=== PATIENT | male | born 1940 | race Caucasian/White ===

== ENCOUNTER 2020-09-28 14:08 | Inpatient (IN) ==
[2020-09-28] MEDS ORDERED: *HR* HYDROmorphone (PF) 1 MG/ML SYRINGE IVP PRN (14:27)
[2020-09-28 15:38] LABS: Basophils % 0.2 %; Hematocrit 42.9 % (37.5-50.1); Hemoglobin 13.2 g/dL (12.9-16.9); Immature Granulocytes % 0.6 % (0-4); Lymphocytes # 0.4 K/mcL (0.6-4.6); Lymphocytes % 3.4 %; Mean Corpuscular HGB Conc 30.8 g/dL (31.6-35.5); Mean Corpuscular Hemoglobin 30.6 pg (28.0-33.3); Mean Corpuscular Volume 99.3 fL (83.0-100.0); Mean Platelet Volume 9.3 fL (9.4-12.4); Monocytes # 0.2 K/mcL (0.0-1.3); Monocytes % 1.9 %; Neutrophils # 9.8 K/mcL (1.6-8.9); Platelet Count 244 K/mcL (140-400); Red Blood Count 4.32 M/mcL (4.19-5.50); Red Cell Distribution Width 11.8 % (11.5-14.5); Segmented Neutrophils % 93.9 %; White Blood Count 10.5 K/mcL (4.3-11.1)
[2020-09-28 15:48] LABS: INR 1.2; Prothrombin Time 13.5 Seconds (9.4-12.1)
[2020-09-28 15:51] LABS: Activated Partial Thrombo Time 32.2 Seconds (26.0-36.0)
[2020-09-28 15:59] LABS: Alanine Aminotransferase 13 Units/L (7-52); Albumin 3.9 g/dL (3.5-5.7); Albumin/Globulin Ratio 1.4 (1.1-2.2); Alkaline Phosphatase 57 Units/L (34-104); Aspartate Amino Transferase 13 Units/L (13-39); BUN/Creatinine Ratio 32 (6-26); Bilirubin,Direct 0.2 mg/dL (0.0-0.2); Bilirubin,Indirect 0.4 mg/dL (0.0-1.0); Bilirubin,Total 0.6 mg/dL (0.3-1.0); Blood Urea Nitrogen 26 mg/dL (8-23); Calcium 9.4 mg/dL (8.6-10.3); Carbon Dioxide 28 mEq/L (23-29); Chloride 103 mEq/L (98-107); Globulin 2.7 g/dL (2.4-3.5); Glucose 154 mg/dL (70-105); Osmolality,Calculated 296 (280-300); Potassium 4.2 mEq/L (3.5-5.1); Sodium 139 mEq/L (136-145); Total Protein 6.6 g/dL (6.4-8.9); Troponin I < 0.03 ng/mL (< 0.04); eGFR For African Americans > 60 (> 60); eGFR For Non-African Americans > 60 (> 60)
[2020-09-28 16:29] LABS: Bilirubin,Urine Negative (Negative); Blood,Urine Moderate (Negative); Clarity,Urine Clear (Clear); Color,Urine Yellow (Yellow); Glucose,Urine (UA) Normal (Normal); Ketones,Urine 20 mg/dL (Negative); Leukocyte Esterase,Urine Negative (Negative); Mucus,Urine Few per lpf (None-Few); Nitrite,Urine Negative (Negative); Protein,Urine 30 mg/dL (Neg-Trace); RBC,Urine 50-100 per hpf (0-3); Specific Gravity,Urine 1.024 (1.010-1.025); Squamous Epithelial Cell,Urine Few per hpf (None-Few); Urobilinogen,Urine Normal (Normal); WBC,Urine 0-3 per hpf (0-3)
[2020-09-28] MEDS ORDERED: Ondansetron ODT 4 MG TAB.RAPDIS SL PRN (16:57)
[2020-09-28] MEDS ORDERED: Melatonin 3 MG TABLET PO PRN (16:57)
[2020-09-28] MEDS ORDERED: Naloxone 0.4 MG/ML INJ IVP PRN (16:57)
[2020-09-28] MEDS ORDERED: *HR* OxyCODONE Immed Rel 5 MG TABLET PO PRN (17:03)
[2020-09-28] MEDS ORDERED: *HR* HYDROmorphone 2 MG TABLET PO PRN (17:03)
[2020-09-28] MEDS ORDERED: Nicotine 14 MG PATCH.TD24 TD PRN (17:51)
[2020-09-28] MEDS ORDERED: Albuterol 2.5 MG/3 ML NEBULIZER IH PRN (17:51)
[2020-09-28] MEDS: Ipratropium/Albuterol Neb 3 ML IH SCH ×2 (18:24→22:23)
[2020-09-29] MEDS: Hydrocortisone Sodium Succ 100 MG/2 ML VIAL IVP SCH ×3 (00:30→16:02)
[2020-09-29] MEDS ORDERED: ceFAZolin 2,000 MG in 0.9 % Sodium Chloride 100 ML IVPB ONE (04:36)
[2020-09-29] MEDS: Ipratropium/Albuterol Neb 3 ML IH SCH ×4 (04:50→23:17)
[2020-09-29 07:08] LABS: Hematocrit 39.4 % (37.5-50.1); Hemoglobin 12.4 g/dL (12.9-16.9); Mean Corpuscular HGB Conc 31.5 g/dL (31.6-35.5); Mean Corpuscular Hemoglobin 30.2 pg (28.0-33.3); Mean Corpuscular Volume 96.1 fL (83.0-100.0); Mean Platelet Volume 9.4 fL (9.4-12.4); Platelet Count 205 K/mcL (140-400); Red Cell Distribution Width 11.7 % (11.5-14.5); White Blood Count 11.7 K/mcL (4.3-11.1)
[2020-09-29] MEDS ORDERED: *HR* FentaNYL (PF) 100 MCG/2 ML VIAL ONE (07:25)
[2020-09-29] MEDS ORDERED: Morphine Sulfate/PF 5mg/10mL Vial ONE (07:29)
[2020-09-29] MEDS ORDERED: Albuterol 2.5 MG/3 ML NEBULIZER IH PRN (07:30)
[2020-09-29] MEDS ORDERED: Ondansetron 4 MG/2 ML VIAL IVP PRN (07:30)
[2020-09-29] MEDS ORDERED: Ipratropium Neb 0.5 MG NEBULIZER IH PRN (07:30)
[2020-09-29] MEDS ORDERED: *HR* FentaNYL (PF) 100 MCG/2 ML VIAL IVP PRN (07:30)
[2020-09-29 07:53] LABS: BUN/Creatinine Ratio 34 (6-26); Blood Urea Nitrogen 27 mg/dL (8-23); Calcium 9.3 mg/dL (8.6-10.3); Carbon Dioxide 28 mEq/L (23-29); Chloride 104 mEq/L (98-107); Glucose 141 mg/dL (70-105); Osmolality,Calculated 297 (280-300); Potassium 4.8 mEq/L (3.5-5.1); Sodium 140 mEq/L (136-145); eGFR For African Americans > 60 (> 60); eGFR For Non-African Americans > 60 (> 60)
[2020-09-29] MEDS ORDERED: Lidocaine -MPF 2% 2 ML VIAL ONE (07:56)
[2020-09-29] MEDS ORDERED: Ondansetron 4 MG/2 ML VIAL ONE (08:14)
[2020-09-29] MEDS ORDERED: Tranexamic Acid 1,000 MG/10 ML VIAL ONE (08:16)
[2020-09-29] MEDS ORDERED: Acetaminophen 325 MG TABLET PO PRN (14:52)
[2020-09-29] MEDS: CeFAZolin 2 GM/120 ML BAG IVPB SCH (16:02)
[2020-09-29] MEDS ORDERED: levoFLOXacin 500 MG TABLET PO SCH (18:15)
[2020-09-29] MEDS: levoFLOXacin 500 MG TABLET PO SCH (22:35)
[2020-09-30] MEDS: Hydrocortisone Sodium Succ 100 MG/2 ML VIAL IVP SCH ×4 (00:31→19:52)
[2020-09-30] MEDS: CeFAZolin 2 GM/120 ML BAG IVPB SCH (00:32)
[2020-09-30] MEDS: Ipratropium/Albuterol Neb 3 ML IH SCH ×4 (03:08→23:01)
[2020-09-30 06:10] LABS: Hematocrit 30.1 % (37.5-50.1); Mean Corpuscular HGB Conc 31.9 g/dL (31.6-35.5); Mean Corpuscular Hemoglobin 30.5 pg (28.0-33.3); Mean Corpuscular Volume 95.6 fL (83.0-100.0); Mean Platelet Volume 9.4 fL (9.4-12.4); Platelet Count 181 K/mcL (140-400); Red Blood Count 3.15 M/mcL (4.19-5.50); Red Cell Distribution Width 11.7 % (11.5-14.5); White Blood Count 16.6 K/mcL (4.3-11.1)
[2020-09-30 06:11] LABS: Hemoglobin 9.6 g/dL (12.9-16.9)
[2020-09-30 06:23] LABS: BUN/Creatinine Ratio 31 (6-26); Blood Urea Nitrogen 23 mg/dL (8-23); Calcium 8.9 mg/dL (8.6-10.3); Carbon Dioxide 30 mEq/L (23-29); Chloride 102 mEq/L (98-107); Glucose 150 mg/dL (70-105); Osmolality,Calculated 291 (280-300); Potassium 4.5 mEq/L (3.5-5.1); Sodium 137 mEq/L (136-145); eGFR For African Americans > 60 (> 60); eGFR For Non-African Americans > 60 (> 60)
[2020-09-30] MEDS: Aspirin Enteric Coated 81 MG Tablet PO SCH (08:35)
[2020-09-30] MEDS ORDERED: Isovue-370 500 ML BOTTLE IVP ONE (10:09)
[2020-09-30] MEDS: FLUTICASONE FUROATE IH SCH (12:01)
[2020-09-30] MEDS: (Anoro Ellipta 62.5-2) IH SCH (12:01)
[2020-09-30] MEDS: *HR* Acetylcysteine 20% 600 MG/3 ML ORAL SYRINGE PO SCH (19:37)
[2020-09-30 20:41] LABS: Hemoglobin 10.1 g/dL (12.9-16.9)
[2020-09-30] MEDS: levoFLOXacin 500 MG TABLET PO SCH (23:19)
[2020-10-01 00:48] LABS: Hematocrit 30.7 % (37.5-50.1); Hemoglobin 9.8 g/dL (12.9-16.9); Mean Corpuscular HGB Conc 31.9 g/dL (31.6-35.5); Mean Corpuscular Hemoglobin 30.2 pg (28.0-33.3); Mean Corpuscular Volume 94.8 fL (83.0-100.0); Mean Platelet Volume 9.4 fL (9.4-12.4); Platelet Count 185 K/mcL (140-400); Red Blood Count 3.24 M/mcL (4.19-5.50); Red Cell Distribution Width 11.9 % (11.5-14.5); White Blood Count 16.5 K/mcL (4.3-11.1)
[2020-10-01 00:57] LABS: BUN/Creatinine Ratio 32 (6-26); Blood Urea Nitrogen 23 mg/dL (8-23); Calcium 9.1 mg/dL (8.6-10.3); Carbon Dioxide 30 mEq/L (23-29); Chloride 104 mEq/L (98-107); Glucose 136 mg/dL (70-105); Osmolality,Calculated 298 (280-300); Potassium 4.3 mEq/L (3.5-5.1); Sodium 141 mEq/L (136-145); eGFR For African Americans > 60 (> 60); eGFR For Non-African Americans > 60 (> 60)
[2020-10-01] MEDS ORDERED: tiZANidine 4 MG TABLET PO ONE ×2 (03:41→06:44)
[2020-10-01] MEDS: Ipratropium/Albuterol Neb 3 ML IH SCH ×4 (04:10→22:36)
[2020-10-01] MEDS: Hydrocortisone Sodium Succ 100 MG/2 ML VIAL IVP SCH (04:52)
[2020-10-01] MEDS: Aspirin Enteric Coated 81 MG Tablet PO SCH (08:01)
[2020-10-01] MEDS: levoFLOXacin 500 MG TABLET PO SCH (08:01)
[2020-10-01] MEDS: FLUTICASONE FUROATE IH SCH (08:06)
[2020-10-01] MEDS: (Anoro Ellipta 62.5-2) IH SCH (08:06)
[2020-10-01] MEDS: *HR* Acetylcysteine 20% 600 MG/3 ML ORAL SYRINGE PO SCH (08:12)
[2020-10-01] MEDS: tiZANidine 4 MG TABLET PO PRN (18:46)
[2020-10-02] MEDS: Ipratropium/Albuterol Neb 3 ML IH SCH (04:40)
[2020-10-02 05:13] LABS: Hematocrit 31.8 % (37.5-50.1); Hemoglobin 10.3 g/dL (12.9-16.9); Mean Corpuscular HGB Conc 32.4 g/dL (31.6-35.5); Mean Corpuscular Hemoglobin 30.9 pg (28.0-33.3); Mean Corpuscular Volume 95.5 fL (83.0-100.0); Mean Platelet Volume 9.4 fL (9.4-12.4); Platelet Count 210 K/mcL (140-400); Red Blood Count 3.33 M/mcL (4.19-5.50); Red Cell Distribution Width 11.9 % (11.5-14.5); White Blood Count 17.8 K/mcL (4.3-11.1)
[2020-10-02 05:27] LABS: BUN/Creatinine Ratio 34 (6-26); Blood Urea Nitrogen 25 mg/dL (8-23); Calcium 9.1 mg/dL (8.6-10.3); Carbon Dioxide 33 mEq/L (23-29); Chloride 100 mEq/L (98-107); Glucose 125 mg/dL (70-105); Magnesium 1.9 mg/dL (1.6-2.6); Osmolality,Calculated 294 (280-300); Potassium 4.5 mEq/L (3.5-5.1); Sodium 139 mEq/L (136-145); eGFR For African Americans > 60 (> 60); eGFR For Non-African Americans > 60 (> 60)
[2020-10-02] MEDS: *HR* Enoxaparin 40 MG/0.4 ML SYRINGE SQ SCH (06:16)
[2020-10-02] MEDS: Aspirin Enteric Coated 81 MG Tablet PO SCH (08:06)
[2020-10-02] MEDS: *HR* Acetylcysteine 20% 600 MG/3 ML ORAL SYRINGE PO SCH (08:06)
[2020-10-02] MEDS: levoFLOXacin 500 MG TABLET PO SCH (08:06)
[2020-10-02] MEDS: (Anoro Ellipta 62.5-2) IH SCH (08:06)
[2020-10-02] MEDS: FLUTICASONE FUROATE IH SCH (08:06)
[2020-10-02] MEDS: tiZANidine 4 MG TABLET PO PRN (08:10)
[2020-10-02] MEDS: Levalbuterol Neb 1.25 MG/3 ML IH SCH ×3 (11:06→22:45)
[2020-10-02] MEDS: Ipratropium Neb 0.5 MG NEBULIZER IH SCH ×3 (11:06→22:45)
[2020-10-03 02:35] LABS: Hematocrit 28.8 % (37.5-50.1); Hemoglobin 8.9 g/dL (12.9-16.9); Mean Corpuscular HGB Conc 30.9 g/dL (31.6-35.5); Mean Corpuscular Hemoglobin 30.1 pg (28.0-33.3); Mean Corpuscular Volume 97.3 fL (83.0-100.0); Platelet Count 211 K/mcL (140-400); Red Blood Count 2.96 M/mcL (4.19-5.50); Red Cell Distribution Width 11.9 % (11.5-14.5); White Blood Count 12.6 K/mcL (4.3-11.1)
[2020-10-03 03:02] LABS: BUN/Creatinine Ratio 37 (6-26); Blood Urea Nitrogen 26 mg/dL (8-23); Calcium 8.7 mg/dL (8.6-10.3); Carbon Dioxide 32 mEq/L (23-29); Chloride 99 mEq/L (98-107); Glucose 125 mg/dL (70-105); Osmolality,Calculated 292 (280-300); Potassium 4.1 mEq/L (3.5-5.1); Sodium 138 mEq/L (136-145); eGFR For African Americans > 60 (> 60); eGFR For Non-African Americans > 60 (> 60)
[2020-10-03] MEDS: Ipratropium Neb 0.5 MG NEBULIZER IH SCH ×4 (03:59→22:45)
[2020-10-03] MEDS: Levalbuterol Neb 1.25 MG/3 ML IH SCH ×4 (03:59→22:44)
[2020-10-03] MEDS: *HR* Enoxaparin 40 MG/0.4 ML SYRINGE SQ SCH (07:53)
[2020-10-03] MEDS: (Anoro Ellipta 62.5-2) IH SCH (07:55)
[2020-10-03] MEDS: FLUTICASONE FUROATE IH SCH (07:55)
[2020-10-03] MEDS: Aspirin Enteric Coated 81 MG Tablet PO SCH (08:00)
[2020-10-03] MEDS: levoFLOXacin 500 MG TABLET PO SCH (08:02)
[2020-10-03] MEDS: 0.9 % Sodium Chloride 1,000 ML IVC SCH (17:46)
[2020-10-04] MEDS: Ipratropium Neb 0.5 MG NEBULIZER IH SCH ×4 (03:52→22:36)
[2020-10-04] MEDS: Levalbuterol Neb 1.25 MG/3 ML IH SCH ×4 (03:52→22:36)
[2020-10-04] MEDS: 0.9 % Sodium Chloride 1,000 ML IVC SCH ×3 (05:19→19:50)
[2020-10-04] MEDS: *HR* Enoxaparin 40 MG/0.4 ML SYRINGE SQ SCH (05:19)
[2020-10-04] MEDS: Aspirin Enteric Coated 81 MG Tablet PO SCH (09:06)
[2020-10-04] MEDS: FLUTICASONE FUROATE IH SCH (09:11)
[2020-10-04] MEDS: (Anoro Ellipta 62.5-2) IH SCH (09:11)
[2020-10-04] MEDS: levoFLOXacin 500 MG TABLET PO SCH (09:17)
[2020-10-04 10:29] LABS: Hematocrit 26.8 % (37.5-50.1); Hemoglobin 8.3 g/dL (12.9-16.9)
[2020-10-04] MEDS ORDERED: Acetaminophen IV 500 MG/50 ML BAG IVPB ONE (23:02)
[2020-10-05] MEDS: Ipratropium Neb 0.5 MG NEBULIZER IH SCH ×3 (03:37→15:41)
[2020-10-05] MEDS: Levalbuterol Neb 1.25 MG/3 ML IH SCH ×3 (03:37→15:41)
[2020-10-05] MEDS: *HR* Enoxaparin 40 MG/0.4 ML SYRINGE SQ SCH (05:38)
[2020-10-05] MEDS: 0.9 % Sodium Chloride 1,000 ML IVC SCH (05:38)
[2020-10-05] MEDS: Aspirin Enteric Coated 81 MG Tablet PO SCH (09:16)
[2020-10-05] MEDS: (Anoro Ellipta 62.5-2) IH SCH (09:18)
[2020-10-05] MEDS: FLUTICASONE FUROATE IH SCH (09:18)
[2020-10-05 12:10] VITALS: BP 107/59; PULSE 101; TEMP 98.5
[2020-10-05 15:32] LABS: Influenza A PCR Negative (Negative); Influenza B PCR Negative (Negative); Resp. Syncytial Virus PCR Negative (Negative)
[2020-10-05 15:48] VITALS: O2SAT 90
[2020-10-05 16:05] LABS: SARS-CoV-2 by PCR (In House) Negative (Negative)
== END 2020-10-05 17:53 | disposition other institution (70) | DRG 480 ==
LOC: EMEROOARM 14:08 → 3NENU 14:08 → SUATTDRO 16:13 → 3NENU 17:06
PROVIDERS: ADMIT Pharmacist; ATTEND Internal Medicine

== ENCOUNTER 2020-10-17 16:08 | Observation (INO) ==
[2020-10-17] MEDS ORDERED: Naloxone 0.4 MG/ML INJ IVP PRN (17:16)
[2020-10-17 18:06] LABS: Basophils % 0.1 %; Hematocrit 36.7 % (37.5-50.1); Lymphocytes # 0.5 K/mcL (0.6-4.6); Lymphocytes % 3.7 %; Mean Corpuscular Hemoglobin 30.1 pg (28.0-33.3); Mean Corpuscular Volume 100.3 fL (83.0-100.0); Mean Platelet Volume 8.7 fL (9.4-12.4); Monocytes # 0.9 K/mcL (0.0-1.3); Monocytes % 6.2 %; Neutrophils # 12.3 K/mcL (1.6-8.9); Platelet Count 500 K/mcL (140-400); Red Blood Count 3.66 M/mcL (4.19-5.50); Red Cell Distribution Width 12.8 % (11.5-14.5); White Blood Count 13.8 K/mcL (4.3-11.1)
[2020-10-17 18:14] LABS: INR 1.1; Prothrombin Time 12.3 Seconds (9.4-12.1)
[2020-10-17 18:27] LABS: BUN/Creatinine Ratio 33 (6-26); Blood Urea Nitrogen 24 mg/dL (8-23); Calcium 9.1 mg/dL (8.6-10.3); Carbon Dioxide 38 mEq/L (23-29); Chloride 101 mEq/L (98-107); Glucose 143 mg/dL (70-105); Osmolality,Calculated 301 (280-300); Potassium 4.7 mEq/L (3.5-5.1); Sodium 142 mEq/L (136-145); eGFR For African Americans > 60 (> 60); eGFR For Non-African Americans > 60 (> 60)
[2020-10-17] MEDS: Budesonide/Formoterol 160/4.5 1 PUFF INH IH SCH (19:57)
[2020-10-17] MEDS: Ipratropium/Albuterol Neb 3 ML IH SCH (19:57)
[2020-10-18] MEDS: Ipratropium/Albuterol Neb 3 ML IH SCH ×6 (00:02→20:38)
[2020-10-18 06:15] LABS: Basophils % 0.1 %; Eosinophils # 0.1 K/mcL (0.0-0.6); Eosinophils % 0.8 %; Hematocrit 35.3 % (37.5-50.1); Hemoglobin 10.5 g/dL (12.9-16.9); Immature Granulocytes % 0.9 % (0-4); Lymphocytes # 1.6 K/mcL (0.6-4.6); Lymphocytes % 8.8 %; Mean Corpuscular HGB Conc 29.7 g/dL (31.6-35.5); Mean Corpuscular Hemoglobin 29.7 pg (28.0-33.3); Monocytes # 1.8 K/mcL (0.0-1.3); Monocytes % 9.9 %; Neutrophils # 14.7 K/mcL (1.6-8.9); Platelet Count 478 K/mcL (140-400); Red Blood Count 3.53 M/mcL (4.19-5.50); Segmented Neutrophils % 79.5 %; White Blood Count 18.5 K/mcL (4.3-11.1)
[2020-10-18 06:35] LABS: BUN/Creatinine Ratio 32 (6-26); Blood Urea Nitrogen 22 mg/dL (8-23); Calcium 8.9 mg/dL (8.6-10.3); Carbon Dioxide 38 mEq/L (23-29); Chloride 103 mEq/L (98-107); Glucose 88 mg/dL (70-105); Magnesium 2.2 mg/dL (1.6-2.6); Osmolality,Calculated 299 (280-300); Phosphorous 2.2 mg/dL (2.7-4.5); Potassium 4.3 mEq/L (3.5-5.1); Sodium 143 mEq/L (136-145); eGFR For African Americans > 60 (> 60); eGFR For Non-African Americans > 60 (> 60)
[2020-10-18] MEDS: Budesonide/Formoterol 160/4.5 1 PUFF INH IH SCH ×2 (07:37→20:38)
[2020-10-18] MEDS ORDERED: Ondansetron 4 MG/2 ML VIAL IVP PRN (08:41)
[2020-10-18] MEDS ORDERED: *HR* HYDROmorphone PF 0.5 MG/0.5 ML SYRINGE IVP PRN (08:41)
[2020-10-18] MEDS ORDERED: *HR* OxyCODONE Immed Rel 5 MG TABLET PO PRN (08:41)
[2020-10-18] MEDS ORDERED: Promethazine 6.25 MG in Water for inj. (sterile) 20 ML IVPB PRN (08:41)
[2020-10-18] MEDS ORDERED: *HR* Propofol 200 MG/20 ML VIAL IVP ONE (08:53)
[2020-10-18] MEDS ORDERED: *HR* Succinylcholine 200 MG/10 ML VIAL IVP ONE (08:53)
[2020-10-18] MEDS ORDERED: Lidocaine -MPF 2% 5 ML VIAL SQ ONE (08:53)
[2020-10-18] MEDS ORDERED: Ondansetron 4 MG/2 ML VIAL IVP ONE (08:53)
[2020-10-18] MEDS ORDERED: *HR* FentaNYL (PF) 100 MCG/2 ML VIAL ONE (08:58)
[2020-10-18] MEDS ORDERED: Ringers Solution, Lactated 1,000 ML IVC SCH (09:45)
[2020-10-18 12:51] LABS: Source of Body Fluid LEFT LOWER LOBE LUNG
[2020-10-18] MEDS: predniSONE 20 MG TABLET PO SCH ×2 (14:20→16:16)
[2020-10-18] MEDS: Aspirin Enteric Coated 81 MG Tablet PO SCH (14:39)
[2020-10-18] MEDS: *HR* Acetylcysteine 20% 600 MG/3 ML ORAL SYRINGE PO SCH (14:39)
[2020-10-18 15:49] LABS: Source of Body Fluid RIGHT LOWER LOBE LUN
[2020-10-18 15:56] LABS: Appearance of Body Fluid Slightly Hazy (Clear); Volume of Body Fluid 23 mL
[2020-10-18] MEDS ORDERED: levoFLOXacin 750 MG TABLET PO SCH ×2 (17:30)
[2020-10-18 17:33] LABS: Appearance of Body Fluid Hazy (Clear); Volume of Body Fluid 12 mL
[2020-10-19] MEDS: Ipratropium/Albuterol Neb 3 ML IH SCH ×7 (00:10→23:38)
[2020-10-19 06:54] LABS: Basophils % 0.1 %; Hematocrit 30.6 % (37.5-50.1); Hemoglobin 9.3 g/dL (12.9-16.9); Lymphocytes # 0.6 K/mcL (0.6-4.6); Lymphocytes % 3.9 %; Mean Corpuscular HGB Conc 30.4 g/dL (31.6-35.5); Mean Corpuscular Hemoglobin 30.2 pg (28.0-33.3); Mean Corpuscular Volume 99.4 fL (83.0-100.0); Mean Platelet Volume 9.1 fL (9.4-12.4); Monocytes # 1.2 K/mcL (0.0-1.3); Monocytes % 7.8 %; Neutrophils # 13.6 K/mcL (1.6-8.9); Platelet Count 407 K/mcL (140-400); Red Blood Count 3.08 M/mcL (4.19-5.50); Segmented Neutrophils % 87.2 %; White Blood Count 15.6 K/mcL (4.3-11.1)
[2020-10-19 07:14] LABS: BUN/Creatinine Ratio 29 (6-26); Blood Urea Nitrogen 22 mg/dL (8-23); Calcium 8.7 mg/dL (8.6-10.3); Carbon Dioxide 34 mEq/L (23-29); Chloride 104 mEq/L (98-107); Glucose 100 mg/dL (70-105); Magnesium 2.1 mg/dL (1.6-2.6); Osmolality,Calculated 299 (280-300); Phosphorous 3.2 mg/dL (2.7-4.5); Potassium 4.9 mEq/L (3.5-5.1); Sodium 143 mEq/L (136-145); eGFR For African Americans > 60 (> 60); eGFR For Non-African Americans > 60 (> 60)
[2020-10-19] MEDS: Budesonide/Formoterol 160/4.5 1 PUFF INH IH SCH ×2 (07:29→19:29)
[2020-10-19] MEDS: *HR* Acetylcysteine 20% 600 MG/3 ML ORAL SYRINGE PO SCH (09:38)
[2020-10-19] MEDS: Aspirin Enteric Coated 81 MG Tablet PO SCH (09:38)
[2020-10-19] MEDS: predniSONE 20 MG TABLET PO SCH ×2 (09:39→16:27)
[2020-10-20 03:23] LABS: Basophils % 0.1 %; Hematocrit 29.8 % (37.5-50.1); Hemoglobin 9.2 g/dL (12.9-16.9); Immature Granulocytes % 0.8 % (0-4); Lymphocytes # 0.4 K/mcL (0.6-4.6); Lymphocytes % 2.5 %; Mean Corpuscular HGB Conc 30.9 g/dL (31.6-35.5); Mean Corpuscular Hemoglobin 30.1 pg (28.0-33.3); Mean Corpuscular Volume 97.4 fL (83.0-100.0); Monocytes # 1.2 K/mcL (0.0-1.3); Monocytes % 6.6 %; Neutrophils # 15.6 K/mcL (1.6-8.9); Platelet Count 353 K/mcL (140-400); Red Blood Count 3.06 M/mcL (4.19-5.50); Red Cell Distribution Width 13.2 % (11.5-14.5); White Blood Count 17.3 K/mcL (4.3-11.1)
[2020-10-20] MEDS: Ipratropium/Albuterol Neb 3 ML IH SCH ×3 (03:23→11:22)
[2020-10-20 03:37] LABS: BUN/Creatinine Ratio 34 (6-26); Blood Urea Nitrogen 25 mg/dL (8-23); Calcium 8.4 mg/dL (8.6-10.3); Carbon Dioxide 33 mEq/L (23-29); Chloride 104 mEq/L (98-107); Glucose 118 mg/dL (70-105); Magnesium 2.1 mg/dL (1.6-2.6); Osmolality,Calculated 295 (280-300); Phosphorous 2.8 mg/dL (2.7-4.5); Potassium 4.2 mEq/L (3.5-5.1); Sodium 140 mEq/L (136-145); eGFR For African Americans > 60 (> 60); eGFR For Non-African Americans > 60 (> 60)
[2020-10-20 07:10] VITALS: TEMP 97.6
[2020-10-20] MEDS: Budesonide/Formoterol 160/4.5 1 PUFF INH IH SCH (07:29)
[2020-10-20] MEDS: predniSONE 20 MG TABLET PO SCH (07:58)
[2020-10-20] MEDS: Aspirin Enteric Coated 81 MG Tablet PO SCH (07:58)
[2020-10-20] MEDS: *HR* Acetylcysteine 20% 600 MG/3 ML ORAL SYRINGE PO SCH (07:59)
[2020-10-20 10:32] VITALS: BP 93/58; PULSE 97
[2020-10-20 12:22] VITALS: O2SAT 96
[2020-10-20] MEDS ORDERED: levoFLOXacin 750 MG TABLET PO SCH (16:00)
== END 2020-10-20 14:30 | disposition other institution (70) ==
LOC: 3ANU → SUATTDRO 16:42
PROVIDERS: ADMIT Internal Medicine; ATTEND Internal Medicine

== ENCOUNTER 2020-11-04 13:56 | Inpatient (IN) ==
[2020-11-04] MEDS ORDERED: Melatonin 3 MG TABLET PO PRN (22:23)
[2020-11-04] MEDS ORDERED: Acetaminophen 325 MG TABLET PO PRN (22:23)
[2020-11-04] MEDS ORDERED: Ondansetron 4 MG/2 ML VIAL IVP PRN (22:23)
[2020-11-04] MEDS ORDERED: Naloxone 0.4 MG/ML INJ IVP PRN (22:23)
[2020-11-05 00:57] LABS: Basophils % 0.1 %; Eosinophils % 0.2 %; Hematocrit 27.3 % (37.5-50.1); Hemoglobin 8.5 g/dL (12.9-16.9); Immature Granulocytes % 1.3 % (0-4); Lymphocytes # 0.5 K/mcL (0.6-4.6); Lymphocytes % 4.2 %; Mean Corpuscular HGB Conc 31.1 g/dL (31.6-35.5); Mean Corpuscular Hemoglobin 29.4 pg (28.0-33.3); Mean Corpuscular Volume 94.5 fL (83.0-100.0); Mean Platelet Volume 9.1 fL (9.4-12.4); Monocytes % 8.1 %; Platelet Count 372 K/mcL (140-400); Red Blood Count 2.89 M/mcL (4.19-5.50); Red Cell Distribution Width 13.4 % (11.5-14.5); Segmented Neutrophils % 86.1 %; White Blood Count 12.7 K/mcL (4.3-11.1)
[2020-11-05 01:19] LABS: Alanine Aminotransferase 15 Units/L (7-52); Albumin 2.5 g/dL (3.5-5.7); Albumin/Globulin Ratio 0.9 (1.1-2.2); Alkaline Phosphatase 56 Units/L (34-104); Aspartate Amino Transferase 9 Units/L (13-39); BUN/Creatinine Ratio 46 (6-26); Bilirubin,Total 0.3 mg/dL (0.3-1.0); Blood Urea Nitrogen 31 mg/dL (8-23); Calcium 8.8 mg/dL (8.6-10.3); Carbon Dioxide 29 mEq/L (23-29); Chloride 106 mEq/L (98-107); Globulin 2.8 g/dL (2.4-3.5); Glucose 104 mg/dL (70-105); Magnesium 1.9 mg/dL (1.6-2.6); Osmolality,Calculated 297 (280-300); Phosphorous 3.5 mg/dL (2.7-4.5); Potassium 4.6 mEq/L (3.5-5.1); Sodium 140 mEq/L (136-145); Total Protein 5.3 g/dL (6.4-8.9); Troponin I 0.03 ng/mL (< 0.04); eGFR For African Americans > 60 (> 60); eGFR For Non-African Americans > 60 (> 60)
[2020-11-05] MEDS: *HR* Enoxaparin 40 MG/0.4 ML SYRINGE SQ SCH (05:22)
[2020-11-05] MEDS ORDERED: Isovue-370 500 ML BOTTLE IVP ONE (11:06)
[2020-11-05] MEDS ORDERED: Ipratropium/Albuterol Neb 3 ML IH PRN (11:18)
[2020-11-05] MEDS: predniSONE 20 MG TABLET PO SCH (11:40)
[2020-11-05] MEDS: Piperacillin/Tazobactam 3.375 GM in 0.9 % Sodium Chloride Mini Bag 100 ML IVPB SCH (18:25)
[2020-11-05] MEDS: *HR* Acetylcysteine 20% 600 MG/3 ML ORAL SYRINGE PO SCH (20:27)
[2020-11-05] MEDS: Budesonide/Formoterol 160/4.5 1 PUFF INH IH SCH (22:51)
[2020-11-06] MEDS: Piperacillin/Tazobactam 3.375 GM in 0.9 % Sodium Chloride Mini Bag 100 ML IVPB SCH ×3 (02:13→17:03)
[2020-11-06 03:32] LABS: Basophils % 0.1 %; Eosinophils % 0.1 %; Hematocrit 28.1 % (37.5-50.1); Hemoglobin 8.5 g/dL (12.9-16.9); Lymphocytes # 0.4 K/mcL (0.6-4.6); Lymphocytes % 2.9 %; Mean Corpuscular HGB Conc 30.2 g/dL (31.6-35.5); Mean Corpuscular Hemoglobin 28.9 pg (28.0-33.3); Mean Corpuscular Volume 95.6 fL (83.0-100.0); Mean Platelet Volume 9.4 fL (9.4-12.4); Monocytes # 0.9 K/mcL (0.0-1.3); Neutrophils # 12.7 K/mcL (1.6-8.9); Platelet Count 414 K/mcL (140-400); Red Blood Count 2.94 M/mcL (4.19-5.50); Red Cell Distribution Width 13.4 % (11.5-14.5); Segmented Neutrophils % 89.9 %; White Blood Count 14.1 K/mcL (4.3-11.1)
[2020-11-06 03:53] LABS: BUN/Creatinine Ratio 48 (6-26); Blood Urea Nitrogen 29 mg/dL (8-23); Calcium 8.6 mg/dL (8.6-10.3); Carbon Dioxide 28 mEq/L (23-29); Chloride 106 mEq/L (98-107); Glucose 153 mg/dL (70-105); Osmolality,Calculated 297 (280-300); Potassium 4.2 mEq/L (3.5-5.1); Sodium 139 mEq/L (136-145); eGFR For African Americans > 60 (> 60); eGFR For Non-African Americans > 60 (> 60)
[2020-11-06] MEDS: Vancomycin 500 MG in 0.9 % Sodium Chloride Mini Bag 100 ML IVPB SCH ×2 (05:27→17:03)
[2020-11-06] MEDS: *HR* Enoxaparin 40 MG/0.4 ML SYRINGE SQ SCH (05:27)
[2020-11-06] MEDS ORDERED: FLUTICASONE FUROATE 100 MCG IH SCH (09:00)
[2020-11-06] MEDS: predniSONE 20 MG TABLET PO SCH (09:12)
[2020-11-06] MEDS: Aspirin Enteric Coated 81 MG Tablet PO SCH (09:12)
[2020-11-06] MEDS: *HR* Acetylcysteine 20% 600 MG/3 ML ORAL SYRINGE PO SCH ×2 (10:52→20:22)
[2020-11-06] MEDS: Budesonide/Formoterol 160/4.5 1 PUFF INH IH SCH ×2 (11:04→20:17)
[2020-11-06] MEDS: Tiotropium 10 INH DOSE IH SCH (11:04)
[2020-11-07] MEDS: Piperacillin/Tazobactam 3.375 GM in 0.9 % Sodium Chloride Mini Bag 100 ML IVPB SCH ×2 (01:30→11:03)
[2020-11-07 06:12] LABS: Red Blood Count 3.02 M/mcL (4.19-5.50); White Blood Count 14.6 K/mcL (4.3-11.1)
[2020-11-07 06:13] LABS: Basophils % 0.1 %; Eosinophils # 0.1 K/mcL (0.0-0.6); Eosinophils % 0.4 %; Hematocrit 28.8 % (37.5-50.1); Hemoglobin 8.5 g/dL (12.9-16.9); Lymphocytes # 0.6 K/mcL (0.6-4.6); Lymphocytes % 3.8 %; Mean Corpuscular HGB Conc 29.5 g/dL (31.6-35.5); Mean Corpuscular Hemoglobin 28.1 pg (28.0-33.3); Mean Corpuscular Volume 95.4 fL (83.0-100.0); Mean Platelet Volume 9.3 fL (9.4-12.4); Monocytes % 7.1 %; Neutrophils # 12.8 K/mcL (1.6-8.9); Platelet Count 428 K/mcL (140-400); Red Cell Distribution Width 13.5 % (11.5-14.5); Segmented Neutrophils % 87.6 %
[2020-11-07 06:33] LABS: BUN/Creatinine Ratio 50 (6-26); Blood Urea Nitrogen 27 mg/dL (8-23); Calcium 8.4 mg/dL (8.6-10.3); Carbon Dioxide 29 mEq/L (23-29); Chloride 108 mEq/L (98-107); Glucose 118 mg/dL (70-105); Osmolality,Calculated 300 (280-300); Potassium 3.9 mEq/L (3.5-5.1); Sodium 142 mEq/L (136-145); eGFR For African Americans > 60 (> 60); eGFR For Non-African Americans > 60 (> 60)
[2020-11-07] MEDS: *HR* Enoxaparin 40 MG/0.4 ML SYRINGE SQ SCH (06:41)
[2020-11-07] MEDS: Vancomycin 500 MG in 0.9 % Sodium Chloride Mini Bag 100 ML IVPB SCH (06:44)
[2020-11-07] MEDS: predniSONE 20 MG TABLET PO SCH (07:35)
[2020-11-07] MEDS: Aspirin Enteric Coated 81 MG Tablet PO SCH (07:35)
[2020-11-07] MEDS: *HR* Acetylcysteine 20% 600 MG/3 ML ORAL SYRINGE PO SCH ×2 (08:24→19:32)
[2020-11-07] MEDS ORDERED: Albuterol 2.5 MG/3 ML NEBULIZER IH PRN (09:48)
[2020-11-07] MEDS: Tiotropium 10 INH DOSE IH SCH (10:50)
[2020-11-07] MEDS: Budesonide/Formoterol 160/4.5 1 PUFF INH IH SCH ×2 (10:52→21:00)
[2020-11-07] MEDS ORDERED: Piperacillin/Tazobactam 3.375 GM in 0.9 % Sodium Chloride Mini Bag 100 ML IVPB SCH (19:00)
[2020-11-08 01:48] LABS: Basophils % 0.2 %; Eosinophils # 0.1 K/mcL (0.0-0.6); Eosinophils % 0.3 %; Hematocrit 27.6 % (37.5-50.1); Hemoglobin 8.5 g/dL (12.9-16.9); Immature Granulocytes % 2.2 % (0-4); Lymphocytes # 0.5 K/mcL (0.6-4.6); Lymphocytes % 3.6 %; Mean Corpuscular HGB Conc 30.8 g/dL (31.6-35.5); Mean Corpuscular Hemoglobin 29.2 pg (28.0-33.3); Mean Corpuscular Volume 94.8 fL (83.0-100.0); Mean Platelet Volume 9.1 fL (9.4-12.4); Monocytes # 1.2 K/mcL (0.0-1.3); Neutrophils # 12.7 K/mcL (1.6-8.9); Platelet Count 409 K/mcL (140-400); Red Blood Count 2.91 M/mcL (4.19-5.50); Red Cell Distribution Width 13.2 % (11.5-14.5); Segmented Neutrophils % 85.7 %; White Blood Count 14.9 K/mcL (4.3-11.1)
[2020-11-08 02:09] LABS: BUN/Creatinine Ratio 34 (6-26); Blood Urea Nitrogen 27 mg/dL (8-23); Calcium 8.4 mg/dL (8.6-10.3); Carbon Dioxide 29 mEq/L (23-29); Chloride 106 mEq/L (98-107); Glucose 156 mg/dL (70-105); Osmolality,Calculated 300 (280-300); Sodium 141 mEq/L (136-145); eGFR For African Americans > 60 (> 60); eGFR For Non-African Americans > 60 (> 60)
[2020-11-08] MEDS: *HR* Enoxaparin 30 MG/0.3 ML SYRINGE SQ SCH (05:11)
[2020-11-08] MEDS: Budesonide/Formoterol 160/4.5 1 PUFF INH IH SCH ×2 (07:47→20:02)
[2020-11-08] MEDS: Tiotropium 10 INH DOSE IH SCH (07:47)
[2020-11-08] MEDS: *HR* Acetylcysteine 20% 600 MG/3 ML ORAL SYRINGE PO SCH ×2 (09:00→21:45)
[2020-11-08] MEDS: predniSONE 20 MG TABLET PO SCH (09:00)
[2020-11-08] MEDS: Aspirin Enteric Coated 81 MG Tablet PO SCH (09:00)
[2020-11-09 01:47] LABS: Basophils % 0.3 %; Eosinophils % 0.1 %; Hematocrit 28.5 % (37.5-50.1); Hemoglobin 8.8 g/dL (12.9-16.9); Lymphocytes # 0.5 K/mcL (0.6-4.6); Lymphocytes % 3.5 %; Mean Corpuscular HGB Conc 30.9 g/dL (31.6-35.5); Mean Corpuscular Hemoglobin 29.1 pg (28.0-33.3); Mean Corpuscular Volume 94.4 fL (83.0-100.0); Mean Platelet Volume 9.3 fL (9.4-12.4); Monocytes # 0.9 K/mcL (0.0-1.3); Monocytes % 5.7 %; Neutrophils # 13.4 K/mcL (1.6-8.9); Platelet Count 440 K/mcL (140-400); Red Blood Count 3.02 M/mcL (4.19-5.50); Red Cell Distribution Width 13.4 % (11.5-14.5); Segmented Neutrophils % 88.4 %; White Blood Count 15.1 K/mcL (4.3-11.1)
[2020-11-09 02:03] LABS: BUN/Creatinine Ratio 42 (6-26); Blood Urea Nitrogen 27 mg/dL (8-23); Calcium 8.2 mg/dL (8.6-10.3); Carbon Dioxide 29 mEq/L (23-29); Chloride 105 mEq/L (98-107); Glucose 132 mg/dL (70-105); Osmolality,Calculated 297 (280-300); Potassium 4.2 mEq/L (3.5-5.1); Sodium 140 mEq/L (136-145); eGFR For African Americans > 60 (> 60); eGFR For Non-African Americans > 60 (> 60)
[2020-11-09] MEDS: *HR* Enoxaparin 30 MG/0.3 ML SYRINGE SQ SCH (05:09)
[2020-11-09] MEDS: Budesonide/Formoterol 160/4.5 1 PUFF INH IH SCH ×2 (08:18→22:01)
[2020-11-09] MEDS: Tiotropium 10 INH DOSE IH SCH (08:20)
[2020-11-09] MEDS: *HR* Acetylcysteine 20% 600 MG/3 ML ORAL SYRINGE PO SCH ×2 (09:52→21:23)
[2020-11-09] MEDS: Aspirin Enteric Coated 81 MG Tablet PO SCH (09:53)
[2020-11-09] MEDS: predniSONE 20 MG TABLET PO SCH (09:53)
[2020-11-10 02:46] LABS: Basophils % 0.2 %; Eosinophils % 0.1 %; Hematocrit 29.2 % (37.5-50.1); Hemoglobin 8.9 g/dL (12.9-16.9); Immature Granulocytes % 2.9 % (0-4); Lymphocytes # 0.6 K/mcL (0.6-4.6); Lymphocytes % 3.4 %; Mean Corpuscular HGB Conc 30.5 g/dL (31.6-35.5); Mean Corpuscular Hemoglobin 28.7 pg (28.0-33.3); Mean Corpuscular Volume 94.2 fL (83.0-100.0); Mean Platelet Volume 9.3 fL (9.4-12.4); Monocytes % 6.1 %; Neutrophils # 14.2 K/mcL (1.6-8.9); Nucleated Red Blood Cells 0.1 /100 WBC (0); Platelet Count 462 K/mcL (140-400); Red Cell Distribution Width 13.5 % (11.5-14.5); Segmented Neutrophils % 87.3 %; White Blood Count 16.3 K/mcL (4.3-11.1)
[2020-11-10 03:12] LABS: BUN/Creatinine Ratio 51 (6-26); Blood Urea Nitrogen 29 mg/dL (8-23); Calcium 8.4 mg/dL (8.6-10.3); Carbon Dioxide 29 mEq/L (23-29); Chloride 107 mEq/L (98-107); Glucose 119 mg/dL (70-105); Osmolality,Calculated 301 (280-300); Potassium 4.2 mEq/L (3.5-5.1); Sodium 142 mEq/L (136-145); eGFR For African Americans > 60 (> 60); eGFR For Non-African Americans > 60 (> 60)
[2020-11-10] MEDS: *HR* Enoxaparin 30 MG/0.3 ML SYRINGE SQ SCH (05:50)
[2020-11-10] MEDS: Aspirin Enteric Coated 81 MG Tablet PO SCH (08:12)
[2020-11-10] MEDS: predniSONE 20 MG TABLET PO SCH (08:12)
[2020-11-10] MEDS: *HR* Acetylcysteine 20% 600 MG/3 ML ORAL SYRINGE PO SCH (08:13)
[2020-11-10 09:12] VITALS: O2SAT 94
[2020-11-10] MEDS: Tiotropium 10 INH DOSE IH SCH (10:46)
[2020-11-10] MEDS: Budesonide/Formoterol 160/4.5 1 PUFF INH IH SCH (10:46)
[2020-11-10 11:13] LABS: Adenovirus Not Detected (Not Detect); Bordetella Pertussis Not Detected (Not Detect); Chlamydophila pneumoniae Not Detected (Not Detect); Coronavirus 229E Not Detected (Not Detect); Coronavirus HKU1 Not Detected (Not Detect); Coronavirus NL63 Not Detected (Not Detect); Coronavirus OC43 Not Detected (Not Detect); Human Metapneumovirus Not Detected (Not Detect); Human Rhinovirus/Enterovirus Not Detected (Not Detect); Influenza A Subtype 2009 H1 Not Detected (Not Detect); Influenza B Not Detected (Not Detect); Mycoplasma pneumoniae Not Detected (Not Detect); Parainfluenza Virus 1 Not Detected (Not Detect); Parainfluenza Virus 2 Not Detected (Not Detect); Parainfluenza Virus 3 Not Detected (Not Detect); Parainfluenza Virus 4 Not Detected (Not Detect); Respiratory Syncytial Virus Not Detected (Not Detect); SARS-CoV-2 Not Detected (Not Detect)
[2020-11-10 11:27] VITALS: BP 126/56; PULSE 91; TEMP 98.7
[2020-11-11 14:30] LABS: Aspergillus fumigatus IgE <0.10 kU/L (<=0.34)
== END 2020-11-10 15:24 | DRG 868 ==
LOC: 2ANU → SUATTDRO 21:26
PROVIDERS: ADMIT Family Medicine; ATTEND Family Medicine